=== PATIENT | female | born 1940 | race Caucasian/White ===

== ENCOUNTER 2022-03-20 14:12 | Emergency (ER) | payer OTHER ==
[~2022-03-20] VITALS: Ht 154.9 cm; Wt 56.7 kg
--- NOTE | 2022-03-20 14:47 | NUR ---
TEXT DR. MOON FOR MRI APPROVAL.
--- NOTE | 2022-03-20 14:55 | NUR ---
RECEIVED PT 81 YRS FEMALE WALKING IN C/O LT SIDE OF FACE DROP NO WEENESS NO PAIN
--- NOTE | 2022-03-20 14:58 | NUR ---
MRI APPROVED, WEB OPERATIONS ADMINISTRATOR NOTIFIED
--- NOTE | 2022-03-20 15:15 | NUR ---
INSERTED ANG CATH # G [id number] AND SENT TO LAB
[2022-03-20] MEDS ORDERED: predniSONE 50 MG TABLET PO ONE (15:30)
--- NOTE | 2022-03-20 15:32 | NUR ---
TO MRI VIA WC AWAKE AND ALERT BP 219/[address] BREWER NOTFYED
[2022-03-20] MEDS ORDERED: predniSONE 20 MG TABLET ONE (15:41)
[2022-03-20 15:54] LABS: BASOPHILS # (AUTO) 0.1 K/uL (0.0-0.2); BASOPHILS % (AUTO) 0.9 % (0.0-2.0); EOSINOPHILS % (AUTO) 1.9 % (0.0-6.0); HEMATOCRIT 43 % (33-45); HEMOGLOBIN 14.6 g/dL (11.5-14.8); LYMPHOCYTES # (AUTO) 1.2 K/uL (0.8-4.8); LYMPHOCYTES % (AUTO) 13.8 % (20.0-44.0); MEAN CORPUSCULAR HGB CONC 34 g/dl (31.0-36.0); MEAN CORPUSCULAR VOLUME 89 fL (82-100); MONOCYTES # (AUTO) 0.6 K/uL (0.1-1.30); MONOCYTES % (AUTO) 7.1 % (2.0-12.0); NEUTROPHILS # (AUTO) 6.6 K/uL (1.8-8.9); NEUTROPHILS % (AUTO) 76.3 % (43.0-81.0); PLATELET COUNT (AUTO) 257 K/uL (150-450); RED BLOOD CELL COUNT(AUTO) 4.85 MIL/uL (4.0-5.2); WHITE BLOOD COUNT (AUTO) 8.7 K/uL (4.3-11.0)
[2022-03-20 16:12] LABS: CALCIUM, SERUM 9.2 mg/dL (8.5-10.1); CARBON DIOXIDE 29 mmol/L (21-32); CHLORIDE 101 mmol/L (98-107); GLUCOSE 107 mg/dL (74-106); POTASSIUM 3.9 mmol/L (3.5-5.1); SODIUM SERUM 138 mmol/L (136-145); UREA NITROGEN, BLOOD 26 mg/dL (7-18)
--- NOTE | 2022-03-20 16:15 | NUR ---
PT BACK FROM MRI VIA W/C AWAKE AND ALERT
[2022-03-20] MEDS ORDERED: CLONIDINE HCL 0.1 MG TABLET ONE (17:19)
--- NOTE | 2022-03-20 17:20 | NUR ---
BP 208/[address] BREWER NOTEFY AND AWRE ORDER WAS GIVEN CLONIDIN 0.1 MG PO GIVEN
[2022-03-20] MEDS ORDERED: CLONIDINE HCL 0.1 MG TABLET PO ONE (17:30)
--- NOTE | 2022-03-20 18:20 | NUR ---
PT RESPONDED TO [place] BP 179/84[facility] DR. DANIELLA MACKAY AND [place]
[2022-03-20] MEDS ORDERED: VALA10002 PO (19:12)
[2022-03-20] MEDS ORDERED: PRED20TA PO (19:12)
[2022-03-20] MEDS ORDERED: AMLO-212 PO (19:14)
--- NOTE | 2022-03-20 19:21 | NUR ---
PTY FULLY AWAKE AND ALERT DINESASS AND PAIN OR HEADACKE NO WEEKNESS D/C INSTRACTION and RX GIVEN TO PT FULLY VERBLIZED UNDERSTOOD D/C HOME ACCOMPANY BY [facility]
[2022-03-20 19:27] VITALS: BP 180/86
== END 2022-03-20 19:28 | disposition home or self-care (01) ==
LOC: ER 14:28
DX: G51.0 Bell's palsy (principal); I10 Essential (primary) hypertension; F41.9 Anxiety disorder, unspecified
CPT/HCPCS: 99285; 70551; 71045; 93005; 85025; 80048; 36415; 84484; J7512